=== PATIENT | female | born 1995 | race Caucasian/White ===

== ENCOUNTER → 2016-06-24 | Outpatient (CLI) | payer OTHER ==
[2013-07-21 17:57] VITALS: BP 112/64
[~2016-06-24] MED LIST: NO HOME MEDICATIONS
== END ==
LOC: RAD 09:55
DX: N89.8 Other specified noninflammatory disorders of vagina (principal); R22.31 Localized swelling, mass and lump, right upper limb; B95.1 Streptococcus, group B, as the cause of diseases classified elsewhere; B96.89 Other specified bacterial agents as the cause of diseases classified elsewhere
CPT/HCPCS: Q0111

== ENCOUNTER → 2017-06-23 | Outpatient (CLI) | payer OTHER ==
[2013-07-21 17:57] VITALS: BP 112/64
== END ==
LOC: LAB 19:04
PROVIDERS: Nurse Practitioner Family
DX: K59.09 Other constipation (principal); L65.9 Nonscarring hair loss, unspecified; R63.5 Abnormal weight gain

== ENCOUNTER → 2017-11-24 | Outpatient (CLI) | payer OTHER ==
[2013-07-21 17:57] VITALS: BP 112/64
[2017-11-24 09:25] LABS: ALBUMIN 4.3 g/dL (3.5-5.0); CALCIUM 9.5 mg/dL (8.4-10.2); POTASSIUM 4.4 mmol/L (3.6-5.0); TOTAL BILIRUBIN 0.6 mg/dL (0.2-1.3); TOTAL PROTEIN 7.9 g/dL (6.3-8.2)
[2017-11-24 09:27] LABS: EOS # 0.2 (0.04-0.40); HEMATOCRIT 43.4 % (37.0-47.0); HEMOGLOBIN 14.3 g/dL (12.5-16.0); LYMPH# 1.8 (1.50-4.00); MEAN CELL VOLUME 91 fl (78-100); MEAN CORPUSCULAR HEMOGLOBIN 30 pg (27-31); MEAN CORPUSCULAR HGB CONC 33 g/dL (33-37); MEAN PLATELET VOLUME 10.3 fl (7.4-10.4); MONO # 0.5 (0.20-0.80); NEU # 3.4 (1.40-6.50); PLATELET COUNT 351 K/mm3 (130-400); RED BLOOD COUNT 4.77 M/mm3 (4.10-5.30); RED CELL DISTRIBUTION WIDTH 12.8 % (11.5-14.5); WHITE BLOOD COUNT 5.9 K/mm3 (4.8-10.8)
== END ==
LOC: LAB 08:43
PROVIDERS: Physician Assistant
DX: K59.00 Constipation, unspecified (principal); R63.5 Abnormal weight gain; R68.89 Other general symptoms and signs; L60.9 Nail disorder, unspecified

== ENCOUNTER → 2018-12-26 | Outpatient (CLI) | payer OTHER ==
[2013-07-21 17:57] VITALS: BP 112/64
[2018-12-26 13:54] LABS: ALBUMIN 4.3 g/dL (3.5-5.0); POTASSIUM 3.6 mmol/L (3.5-5.1)
[2018-12-26 13:55] LABS: CALCIUM 9.7 mg/dL (8.3-10.5)
[2018-12-26 13:56] LABS: EOS # 0.1 (0.04-0.40); EOS % 1.8 % (1.0-5.0); HEMATOCRIT 42.8 % (37.0-47.0); HEMOGLOBIN 13.9 g/dL (12.5-16.0); LYMPH# 1.3 (1.50-4.00); MEAN CELL VOLUME 89 fl (78-100); MEAN CORPUSCULAR HEMOGLOBIN 29 pg (27-31); MEAN CORPUSCULAR HGB CONC 33 g/dL (33-37); MEAN PLATELET VOLUME 10.7 fl (7.4-10.4); MONO # 0.4 (0.20-0.80); NEU # 3.8 (1.40-6.50); PLATELET COUNT 335 K/mm3 (130-400); RED BLOOD COUNT 4.83 M/mm3 (4.10-5.30); RED CELL DISTRIBUTION WIDTH 12.3 % (11.5-14.5); WHITE BLOOD COUNT 5.6 K/mm3 (4.8-10.8)
[2018-12-26 13:57] LABS: TOTAL PROTEIN 7.7 g/dL (6.4-8.3)
[2018-12-26 13:58] LABS: TOTAL BILIRUBIN 0.6 mg/dL (0.2-1.2)
== END ==
LOC: LAB 13:33
PROVIDERS: Nurse Practitioner
DX: K59.00 Constipation, unspecified (principal); R19.7 Diarrhea, unspecified

== ENCOUNTER → 2018-12-27 | Outpatient (CLI) | payer OTHER ==
[2013-07-21 17:57] VITALS: BP 112/64
[2018-12-27 09:14] LABS: URINE APPEARANCE CLEAR; URINE BILIRUBIN NEGATIVE (NEGATIVE); URINE BLOOD NEGATIVE (NEGATIVE); URINE COLOR YELLOW; URINE GLUCOSE NEGATIVE (NEGATIVE); URINE KETONE SMALL (NEGATIVE); URINE LEUKOCYTE ESTERASE NEGATIVE (NEGATIVE); URINE MUCUS PRESENT (NOT PRESENT); URINE NITRATE NEGATIVE (NEGATIVE); URINE PROTEIN(semi-quant) TRACE mg/dL (NEGATIVE); URINE UROBILINOGEN NORMAL (NORMAL)
== END ==
LOC: LAB 08:21
PROVIDERS: Nurse Practitioner
DX: K59.00 Constipation, unspecified (principal); R19.7 Diarrhea, unspecified

== ENCOUNTER → 2019-01-24 | Day surgery (SDC) | payer OTHER ==
[2013-07-21 17:57] VITALS: BP 112/64
== END ==
LOC: MSO 08:05
DX: R19.7 Diarrhea, unspecified (principal); K21.9 Gastro-esophageal reflux disease without esophagitis; Z87.19 Personal history of other diseases of the digestive system
CPT/HCPCS: 00813; J2704; J3010; J7120

== ENCOUNTER → 2019-05-28 | Outpatient (CLI) | payer BC ==
[2013-07-21 17:57] VITALS: BP 112/64
== END ==
LOC: RAD 13:25
DX: S89.91XA Unspecified injury of right lower leg, initial encounter (principal); W19.XXXA Unspecified fall, initial encounter

== ENCOUNTER → 2019-07-13 | Outpatient (CLI) | payer BC ==
[2013-07-21 17:57] VITALS: BP 112/64
[2019-07-13 09:55] LABS: CLUE CELLS PRESENT (Not Observd)
== END ==
LOC: LAB 08:33
PROVIDERS: Nurse Practitioner
DX: N76.0 Acute vaginitis (principal)
CPT/HCPCS: Q0111

== ENCOUNTER → 2020-06-17 | Outpatient (CLI) | payer BC ==
[2013-07-21 17:57] VITALS: BP 112/64
[~2020-06-17] MED LIST changes: +DROSPIRENONE AN1 TAB PO; +ZOFRAN ODT4 MG PO; +ZYRTEC10 M3 PO
== END ==
LOC: LAB 14:49
DX: R30.9 Painful micturition, unspecified (principal)

== ENCOUNTER → 2020-07-01 | Outpatient (CLI) | payer BC ==
[2013-07-21 17:57] VITALS: BP 112/64
== END ==
LOC: LAB 13:43
DX: L02.91 Cutaneous abscess, unspecified (principal)

== ENCOUNTER → 2020-07-31 | Outpatient (CLI) | payer BC ==
[2020-07-31 12:36] LABS: BASO # 0.04 (0.02-0.10); EOS # 0.12 (0.04-0.40); EOS % 1.7 % (1.0-5.0); HEMATOCRIT 43.5 % (37.0-47.0); HEMOGLOBIN 14.3 g/dL (12.5-16.0); MEAN CELL VOLUME 89 fl (78-100); MEAN CORPUSCULAR HEMOGLOBIN 29 pg (27-31); MEAN CORPUSCULAR HGB CONC 33 g/dL (33-37); MEAN PLATELET VOLUME 9.8 fl (7.4-10.4); NEU # 4.71 (1.40-6.50); PLATELET COUNT 374 K/mm3 (130-400); RED BLOOD COUNT 4.87 M/mm3 (4.10-5.30); RED CELL DISTRIBUTION WIDTH 11.9 % (11.5-14.5); WHITE BLOOD COUNT 7.1 K/mm3 (4.8-10.8)
[2020-07-31 12:39] LABS: ALBUMIN 4.1 g/dL (3.5-5.0); POTASSIUM 4.4 mmol/L (3.5-5.1)
[2020-07-31 12:40] LABS: CALCIUM 9.3 mg/dL (8.3-10.5)
[2020-07-31 12:41] LABS: TOTAL PROTEIN 7.7 g/dL (6.4-8.3)
[2020-07-31 12:43] LABS: TOTAL BILIRUBIN 0.5 mg/dL (0.2-1.2)
== END ==
LOC: LAB 11:51
PROVIDERS: Physician Assistant
DX: Z13.1 Encounter for screening for diabetes mellitus (principal); R55 Syncope and collapse; R42 Dizziness and giddiness; K90.9 Intestinal malabsorption, unspecified

== ENCOUNTER → 2020-08-18 | Outpatient (CLI) | payer BC | LOC: RAD 10:00 | DX: R55 Syncope and collapse (principal) | CPT/HCPCS: A9585 ==

== ENCOUNTER → 2020-09-02 | Outpatient (CLI) | payer BC | LOC: LAB 12:57 | DX: J03.90 Acute tonsillitis, unspecified (principal) ==

== ENCOUNTER 2020-09-12 00:27 | Emergency (ER) | payer BC ==
[~2020-09-12] VITALS: Ht 162.6 cm; Wt 61.4 kg
[~2020-09-12 00:27] MED LIST changes: -DROSPIRENONE AN1 TAB PO; -ZOFRAN ODT4 MG PO; -ZYRTEC10 M3 PO
[2020-09-12] MEDS ORDERED: ZYRTEC10 M3 PO (01:00)
[2020-09-12] MEDS ORDERED: DROSPIRENONE AN1 TAB PO (01:01)
[2020-09-12] MEDS ORDERED: ZOFRAN ODT4 MG PO (01:25)
[2020-09-12 01:39] VITALS: BP 141/88
== END 2020-09-12 01:39 | disposition home or self-care (01) ==
LOC: ED 00:27
DX: S06.0X0A Concussion without loss of consciousness, initial encounter (principal); W22.8XXA Striking against or struck by other objects, initial encounter